=== PATIENT | male | born 1980 | race Two or more races ===

== ENCOUNTER 2017-06-16 09:32 | Emergency (ER) | payer OTHER ==
[~2017-06-16] VITALS: Ht 167.6 cm; Wt 93.4 kg
[2017-06-16] MEDS ORDERED: IV NORMAL SALINE 1000ML BAG 1,000 ML IV SCH (09:51)
[2017-06-16] MEDS ORDERED: ONDANSETRON PF 4 MG/2 ML VIAL. IV ONE (10:00)
[2017-06-16] MEDS ORDERED: fentaNYL PF VIAL 100 MCG/2 ML VIAL IV PRN (10:00)
[2017-06-16] MEDS ORDERED: IOHEXOL 300 MG/ML 75 ML VIAL IV ONE (10:15)
--- NOTE | 2017-06-16 10:32 | ED.ADGEN ---
Past Medical History Past Medical History: No Pertinent History Past Surgical History: No Surgical History Alcohol Use: Occasionally Drug Use: None Adult General Chief Complaint Chief Complaint: TRAUMA ALERT HPI HPI Patient is a 36 year old man, who was working on a roof at work, when he slid, and fell. Patient states that the roof was about 25 feet in the air, he states that he caught under the gutters, believes he fell about 16 feet. Patient states that he fell backwards landing on his right foot and then onto his back. He states he did not strike his head, denies loss of consciousness. C-collar placed upon arrival to the emergency department based on mechanism. Patient has deformity and significant tenderness of the foot and ankle on the right. He is also complaining of pain in the right elbow. He denies any head or neck pain, any abdominal pain or chest pain, any back pain. No previous injuries. Review of Systems Review of Systems Constitutional: Denies fever or chills. [] Eyes: Denies change in visual acuity. [] HENT: Denies nasal congestion or sore throat. [] Respiratory: Denies cough or shortness of breath. [] Cardiovascular: Denies chest pain or edema. [] GI: Denies abdominal pain, nausea, vomiting, bloody stools or diarrhea. [] : Denies dysuria. [] Musculoskeletal: Denies back pain, complaining of pain in the right lower extremity and right upper extremity. Integument: Denies rash. [] Neurologic: Denies headache, focal weakness or sensory changes. [] Endocrine: Denies polyuria or polydipsia. [] Lymphatic: Denies swollen glands. [] Psychiatric: Denies depression or anxiety. [] Current Medications Current Medications Current Medications Medications (Trade) Dose Ordered Sig/Fuad Start Time Stop Time Status Last Admin Dose Admin Diphtheria/ Tetanus/Acell Pertussis (Boostrix) 0.5 ml ONCE ONCE 06/16/17 12:15 06/16/17 12:16 DC 06/16/17 12:31 0.5 ML Fentanyl Citrate (Fentanyl 2ml Vial) 25 mcg PRN Q15MIN PRN 06/16/17 10:00 06/16/17 13:41 DC 06/16/17 11:00 25 MCG Iohexol (Omnipaque 300 Mg/ml) 75 ml 1X ONCE 06/16/17 10:15 06/16/17 10:16 DC 06/16/17 11:12 75 ML Lidocaine/Sodium Bicarbonate (Buffered Lidocaine 1%) 20 ml 1X ONCE 06/16/17 12:15 06/16/17 12:16 DC 06/16/17 12:30 20 ML Ondansetron HCl (Zofran) 4 mg 1X ONCE 06/16/17 10:00 06/16/17 10:07 DC 06/16/17 11:03 4 MG Sodium Chloride 1,000 ml @ 1,000 mls/hr Q1H 06/16/17 09:51 06/16/17 10:50 DC 06/16/17 10:57 1,000 MLS/HR Allergies Allergies Allergies Coded Allergies Type Severity Reaction Last Updated Verified No Known Drug Allergies 06/16/17 No Physical Exam Physical Exam Constitutional: Well developed, well nourished, appears uncomfortable, non- toxic appearance. [] HENT: Normocephalic, atraumatic, bilateral external ears normal, oropharynx moist, no oral exudates, nose normal. [] Eyes: PERRLA, EOMI, conjunctiva normal, no discharge. [] Neck: Normal range of motion, no tenderness, supple, no stridor. [] Cardiovascular:Heart rate regular rhythm, no murmur , S1, S2, no rubs or gallops , chest or crepitus or tenderness.[] Lungs & Thorax: Bilateral breath sounds clear to auscultation , no wheezing, rhonchi, rales.[] Abdomen: Bowel sounds normal, soft, no tenderness, no rebound, rigidity, no guarding, no masses, no pulsatile masses. [] Skin: Warm, dry, no erythema, no rash. [] Back: No tenderness, no CVA tenderness. [] Extremities: Patient with swelling and tenderness to the right foot dorsal aspect, also in the ankle, no bony crepitus identified in the ankle region, patient noted to have a to cinnamon laceration to the inner aspect of the right forearm, no cyanosis, no clubbing, ROM intact, no edema. [] Neurologic: Alert and oriented X 3, normal motor function, normal sensory function, no focal deficits noted. [] Psychologic: Affect normal, judgement normal, mood normal. [] Current Patient Data Vital Signs Vital Signs Date Time Temp Pulse Resp B/P (MAP) Pulse Ox O2 Delivery O2 Flow Rate FiO2 06/16/17 13:06 66 16 124/76 (92) 100 Room Air 06/16/17 09:37 98.0 98.0 Lab Values Laboratory Tests Test 06/16/17 10:38 06/16/17 10:47 06/16/17 13:19 White Blood Count 7.4 x10^3/uL (4.0-11.0) Red Blood Count 5.30 x10^6/uL (4.30-5.70) Hemoglobin 16.1 g/dL (13.0-17.5) Hematocrit 46.7 % (39.0-53.0) Mean Corpuscular Volume 88 fL (79-100) Mean Corpuscular Hemoglobin 30 pg (25-35) Mean Corpuscular Hemoglobin Concent 35 g/dL (31-37) Red Cell Distribution Width 13.0 % (11.5-14.5) Platelet Count 240 x10^3/uL (140-400) Neutrophils (%) (Auto) 63 % (31-73) Lymphocytes (%) (Auto) 29 % (24-48) Monocytes (%) (Auto) 6 % (0-9) Eosinophils (%) (Auto) 2 % (0-3) Basophils (%) (Auto) 0 % (0-3) Neutrophils # (Auto) 4.6 x10^3uL (1.8-7.7) Lymphocytes # (Auto) 2.2 x10^3/uL (1.0-4.8) Monocytes # (Auto) 0.4 x10^3/uL (0.0-1.1) Eosinophils # (Auto) 0.1 x10^3/uL (0.0-0.7) Basophils # (Auto) 0.0 x10^3/uL (0.0-0.2) Prothrombin Time 12.4 SEC (11.7-14.0) Prothrombin Time INR 1.0 (0.8-1.1) PTT 28 SEC (24-38) Sodium Level 139 mmol/L (136-145) Potassium Level 3.8 mmol/L (3.5-5.1) Chloride Level 103 mmol/L (98-107) Carbon Dioxide Level 28 mmol/L (21-32) Anion Gap 8 (6-14) 19 mmol/L (6-14) H Blood Urea Nitrogen 15 mg/dL (8-26) Creatinine 0.9 mg/dL (0.7-1.3) Estimated GFR (Cockcroft-Gault) 96.6 Glucose Level 97 mg/dL (70-99) 95 mg/dL (70-99) Lactic Acid Level 1.1 mmol/L (0.4-2.0) Calcium Level 9.0 mg/dL (8.5-10.1) POC Hemoglobin 16.0 g/dL (14-18) POC Hematocrit 47 % (37-52) POC Sodium 140 mmol/L (135-145) POC Potassium 3.8 mmol/L (3.5-5.0) POC Chloride 102 mmol/L (98-110) POC Total CO2 24 mmol/L (23-32) POC Blood Urea Nitrogen 14 mg/dL (8-26) POC Creatinine 0.8 mg/dL (0.5-1.4) POC Ionized Calcium (Sukumar) 1.17 mmol/L (1.13-1.32) Urine Collection Type Unknown Urine Color Yellow Urine Clarity Clear Urine pH 7.0 Urine Specific Davilla >=1.030 Urine Protein Negative mg/dL (NEG-TRACE) Urine Glucose (UA) Negative mg/dL (NEG) Urine Ketones (Stick) Negative mg/dL (NEG) Urine Blood Negative (NEG) Urine Nitrite Negative (NEG) Urine Bilirubin Negative (NEG) Urine Urobilinogen Dipstick 0.2 mg/dL (0.2 mg/dL) Urine Leukocyte Esterase Negative (NEG) Urine RBC 0 /HPF (0-2) Urine WBC 0 /HPF (0-4) Urine Squamous Epithelial Cells Few /LPF Urine Bacteria 0 /HPF (0-FEW) Urine Opiates Screen Neg (NEG) Urine Methadone Screen Neg (NEG) Urine Barbiturates Neg (NEG) Urine Phencyclidine Screen Neg (NEG) Urine Amphetamine/Methamphetamine Neg (NEG) Urine Benzodiazepines Screen Neg (NEG) Urine Cocaine Screen Neg (NEG) Urine Cannabinoids Screen Neg (NEG) Urine Ethyl Alcohol Neg (NEG) Laboratory Tests 06/16/17 10:38 Laboratory Tests 06/16/17 10:38 06/16/17 10:47 EKG EKG EC: Sinus rhythm, heart rate 59 beats/minute, upright axis, QTC of 414, NC 150, QRS of 102, no ST elevations or depressions, no evidence of acute ST abnormalities. As interpreted by me. Radiology/Procedures Radiology/Procedures [][facility] [address] [place] [address] IMAGING REPORT Signed PATIENT: GILMAR CASTELLON ACCOUNT: [id number] : 1980 LOCATION: ER AGE: 36 SEX: M EXAM STATUS: REG ER ORD. PHYSICIAN: LUIZ LANDERS DO REASON: Fall/ 16 feet PROCEDURE: CT HEAD AND CERVICAL SPINE WO CT scan of the head without contrast 06/16/2017 Clinical history: Fall with head injury. Technique: Unenhanced, contiguous, 5 mm axial sections were obtained through the head. One or more of the following individualized dose reduction techniques were utilized for this study: 1. Automated exposure control. 2. Adjustment of the mA and/or kV according to patient size. 3. Use of iterative reconstruction technique. Findings: The ventricles and sulci are within normal limits in size and configuration. No area of abnormal attenuation is involving the brain parenchyma. No extra-axial fluid collection is seen. No skull fracture is noted. Impression: Negative study. CT scan of the cervical spine without contrast 06/16/2017 Clinical history: Fall with neck injury. Technique: Unenhanced, contiguous, 0.625 mm axial sections were obtained through the cervical spine. 3 mm reconstructed sagittal, axial, and and coronal images were obtained. One or more of the following individualized dose reduction techniques were utilized for this study: 1. Automated exposure control. 2. Adjustment of the mA and/or kV according to patient size. 3. Use of iterative reconstruction technique. Findings: Sagittal and coronal reconstructed images demonstrate slight reversal of the normal cervical lordosis. Mild lateral curvature of the cervical spine is seen convex to the left. Degenerative changes consisting of mild disc space narrowing, vertebral endplate sclerosis and mild anterior vertebral body osteophyte formation seen predominantly at the C4-5 disc space. No fracture or subluxation of the cervical vertebrae is seen. Impression: No fracture or subluxation of the cervical vertebra is seen. DICTATED and SIGNED BY: TRUDI CABALLERO MD DATE: 06/16/17 1159 CC: LUIZ LANDERS DO; NO PCP ~ Impressions: [facility] [address] [place], [place] [id number] IMAGING REPORT Signed PATIENT: GILMAR CASTELLON ACCOUNT: [id number] : 1980 LOCATION: ER AGE: 36 SEX: M EXAM STATUS: REG ER ORD. PHYSICIAN: LUIZ LANDERS DO REASON: Fall/ 16 feet PROCEDURE: CT CHEST ABD PELVIS W/CONTRAST CT scan of the chest, abdomen and pelvis with contrast 06/16/2017 Clinical history: Chest, abdominal and pelvic pain post fall 16 feet. Technique: After the intravenous administration of 75 cc of Omnipaque 300 only, contiguous, 5 mm axial sections were obtained through the chest, abdomen and pelvis. One or more of the following individualized dose reduction techniques were utilized for this study: 1. Automated exposure control. 2. Adjustment of the mA and/or kV according to patient size. 3. Use of iterative reconstruction technique. Findings: No mediastinal hematoma is seen. The heart is normal in size. The thoracic aorta tapers normally. Minimal dependent subsegmental atelectasis is seen involving both lungs. No acute pulmonary infiltrate is seen. No pleural effusion or pneumothorax is noted. The liver parenchyma has a decreased attenuation consistent with mild fatty infiltration. No acute focal abnormality of the liver is seen. The spleen, pancreas, adrenal glands and kidneys are within normal limits. The abdominal aorta tapers normally. The gallbladder is well-distended. No free fluid or free air is seen within the abdomen. There is no evidence of bowel obstruction. Air and stool is seen throughout the colon. The appendix is well visualized and is within normal limits. Images through the pelvis demonstrate the urinary bladder distended with urine. No free fluid is seen. No pelvic hematoma is noted. Mild degenerative changes are seen involving the mid and lower thoracic and mid and lower lumbar spine. Degenerative changes are seen involving both SI joints, left greater than right. The osseous structures are grossly intact. Impression: No acute abnormality is seen. DICTATED and SIGNED BY: TRUDI CABALLERO MD DATE: 06/16/17 1202 CC: LUIZ LANDERS DO; NO PCP ~ [facility] [address] [place] [address] IMAGING REPORT Signed PATIENT: GILMAR CASTELLON ACCOUNT: [id number] : 1980 LOCATION: ER AGE: 36 SEX: M EXAM STATUS: REG ER ORD. PHYSICIAN: LUIZ LANDERS DO REASON: FALL FROM ROOF, PAIN TO RIGHT LOWER LEG AND RIGHT ARM PROCEDURE: ELBOW RIGHT 3V Three-view right elbow radiographs 06/16/2017 Clinical history: Fall from roof with injury to the right elbow. AP, lateral and oblique digital radiographs of the right elbow were obtained. No fracture or dislocation of the right elbow is seen. Moderate enthesophyte formation is seen involving the olecranon. There is no radiographic evidence of a joint effusion. Impression: No fracture or dislocation of the right elbow is seen. DICTATED and SIGNED BY: TRUDI CABALLERO MD DATE: 06/16/17 110 CC: LUIZ LANDERS DO; NO PCP ~ [facility] [id number] [place], [place] [id number] IMAGING REPORT Signed PATIENT: GILMAR CASTELLON ACCOUNT: [id number] : 1980 LOCATION: ER AGE: 36 SEX: M EXAM STATUS: REG ER ORD. PHYSICIAN: LUIZ LANDERS DO REASON: FALL FROM ROOF, PAIN TO RIGHT LOWER LEG AND RIGHT ARM PROCEDURE: FOREARM RIGHT AP and lateral right forearm radiographs 06/16/2017 Clinical history: Fall from roof with pain and laceration to the proximal right forearm. AP and lateral digital radiographs of the right forearm were obtained. No fracture or dislocation right forearm is seen. No radiopaque foreign body is noted. Impression: No fracture or dislocation of the right forearm is seen. DICTATED and SIGNED BY: TRUDI CABALLERO MD DATE: 06/16/17 110 CC: LUIZ LANDERS DO; NO PCP ~ [facility] [address] [place], [place] [id number] IMAGING REPORT Signed PATIENT: GILMAR CASTELLON ACCOUNT: [id number] : 1980 LOCATION: ER AGE: 36 SEX: M EXAM STATUS: REG ER ORD. PHYSICIAN: LUIZ LANDERS DO REASON: FALL FROM ROOF, PAIN TO RIGHT LOWER LEG AND RIGHT ARM PROCEDURE: FOOT RIGHT 3V Three-view right foot radiographs 06/16/2017 Clinical history: Fall from roof with right foot pain. AP, lateral and oblique digital radiographs of the right foot were obtained. No fracture or dislocation of the right foot is seen. Mild hallux valgus deformity is noted. No radiopaque foreign body is seen. Impression: No fracture or dislocation of the right foot is seen. DICTATED and SIGNED BY: TRUDI CABALLERO MD DATE: 06/16/171109 CC: LUIZ LANDERS DO; NO PCP ~ [facility] [address] [facility] [place], [place] [phone] IMAGING REPORT Signed PATIENT: GILMAR CASTELLON ACCOUNT: [id number] : 1980 LOCATION: ER AGE: 36 SEX: M EXAM STATUS: REG ER ORD. PHYSICIAN: LUIZ LANDERS DO REASON: fall/LE pain PROCEDURE: CT LUMBAR SPINE RECONSTRUCTION CT scan of the lumbar spine 06/16/2017 Clinical history: Low back pain post fall 16 feet. Technique: 3 mm reconstructed sagittal, axial and coronal images of the lumbar spine were generated from the dataset obtained during the CT scan of the patient's chest, abdomen and pelvis. One or more of the following individualized dose reduction techniques were utilized for this study: 1. Automated exposure control. 2. Adjustment of the mA and/or kV according to patient size. 3. Use of iterative reconstruction technique. Findings: Sagittal and coronal reconstructed images demonstrate very mild S-shaped curvature of the thoracolumbar spine. No fracture or subluxation of the lumbar vertebrae is seen. The changes of relatively mild degenerative disc disease are seen involving the mid and lower lumbar spine. These consist of minimal to mild generalized disc bulges, degenerative changes involving the facet joints and mild ligamentum flavum hypertrophy. These findings do not result in definite areas of significant central spinal canal or neural foraminal stenosis. Impression: No fracture or subluxation of the lumbar vertebrae is seen. DICTATED and SIGNED BY: TRUDI CABALLERO MD DATE: 06/16/17 1208 CC: LUIZ LANDERS DO; NO PCP ~ [facility] [address] [place], [place] [id number] IMAGING REPORT Signed PATIENT: GILMAR CASTELLON ACCOUNT: [id number] : 1980 LOCATION: ER AGE: 36 SEX: M EXAM STATUS: REG ER ORD. PHYSICIAN: LUIZ LANDERS DO REASON: FALL FROM ROOF, PAIN TO RIGHT LOWER LEG AND RIGHT ARM PROCEDURE: TIBIA FIBULA RIGHT AP and lateral right tibia and fibula radiographs 06/16/2017 Clinical history: Fall from roof with right lower leg pain. AP and lateral digital radiographs of the right tibia and fibula were obtained. No fracture or dislocation is seen. No radiopaque foreign body is noted. Impression: No fracture or dislocation of the right tibia or fibula is seen. DICTATED and SIGNED BY: TRUDI CABALLERO MD DATE: 06/16/17 1105 CC: LUIZ LANDERS DO; NO PCP ~ [facility] [address] [place], [place] [phone] IMAGING REPORT Signed PATIENT: GILMAR CASTELLON ACCOUNT: [id number] : 1980 LOCATION: ER AGE: 36 SEX: M EXAM STATUS: REG ER ORD. PHYSICIAN: LUIZ LANDERS DO REASON: Fall/ 16 feet PROCEDURE: CT CHEST ABD PELVIS W/CONTRAST CT scan of the chest, abdomen and pelvis with contrast 06/16/2017 Clinical history: Chest, abdominal and pelvic pain post fall 16 feet. Technique: After the intravenous administration of 75 cc of Omnipaque 300 only, contiguous, 5 mm axial sections were obtained through the chest, abdomen and pelvis. One or more of the following individualized dose reduction techniques were utilized for this study: 1. Automated exposure control. 2. Adjustment of the mA and/or kV according to patient size. 3. Use of iterative reconstruction technique. Findings: No mediastinal hematoma is seen. The heart is normal in size. The thoracic aorta tapers normally. Minimal dependent subsegmental atelectasis is seen involving both lungs. No acute pulmonary infiltrate is seen. No pleural effusion or pneumothorax is noted. The liver parenchyma has a decreased attenuation consistent with mild fatty infiltration. No acute focal abnormality of the liver is seen. The spleen, pancreas, adrenal glands and kidneys are within normal limits. The abdominal aorta tapers normally. The gallbladder is well-distended. No free fluid or free air is seen within the abdomen. There is no evidence of bowel obstruction. Air and stool is seen throughout the colon. The appendix is well visualized and is within normal limits. Images through the pelvis demonstrate the urinary bladder distended with urine. No free fluid is seen. No pelvic hematoma is noted. Mild degenerative changes are seen involving the mid and lower thoracic and mid and lower lumbar spine. Degenerative changes are seen involving both SI joints, left greater than right. The osseous structures are grossly intact. Impression: No acute abnormality is seen. DICTATED and SIGNED BY: TRUDI CABALLERO MD DATE: 06/16/17 1202 CC: LUIZ LANDERS DO; NO PCP ~ Course & Med Decision Making Course & Med Decision Making Pertinent Labs and Imaging studies reviewed. (See chart for details) Patient patient's mechanism action, c-collar was placed, and trauma alert was called. Patient is complaining of pain in the right ankle, states he is a previous injury to the area, but is diffusely tender in the medial and lateral nail noted to have some deformity, although there is no crepitus or evidence of external injury. Discussed with patient that based on the height of his fall, which was at least 16 feet, when he landed on his right side, he is agreeable for imaging of the head, neck, chest abdomen and pelvis to rule out occult injury. X-rays of the right upper and lower extremity obtained also. No acute fractures or other abnormalities identified. Patient noted to have an old fracture in the right lower extremity. However, although there is no acute injury identified on plain film, patient is having difficulty weightbearing, and is limping, therefore after c-collar was cleared, and patient had suture repair of the laceration of the right upper extremity, patient had Garth wrap applied was placed on crutches, given contact information for orthopedics with Dr. Akbar. Patient's tetanus was updated. Patient's employer was informed of incident, and patient will follow-up per instructions from his employer. Patient discharged home in stable condition with instructions to return in 7 days for suture removal, to return any time for new or concerning symptoms as discussed. Prescriptions for Flexeril and naproxen distributed with discharge, patient exited the emergency department crutch walking without issue with significant other. Dragon Disclaimer Dragon Disclaimer This electronic medical record was generated, in whole or in part, using a voice recognition dictation system. Departure Impression: Primary Impression: Fall Additional Impression: Right ankle pain Disposition: HOME, SELF-CARE Condition: IMPROVED Scripts Cyclobenzaprine Hcl (CYCLOBENZAPRINE HCL) 10 Mg Tablet 10 MG PO PRN TID Y for MUSCLE PAIN, #12 TAB Prov: LUIZ LANDERS DO 06/16/17 Naproxen (NAPROXEN) 250 Mg Tablet 250 MG PO PRN BID Y for PAIN, #10 Prov: LUIZ LANDERS DO 06/16/17 Problem Qualifiers LUIZ LANDERS DO Jun 16, 2017 10:32
[2017-06-16 10:53] LABS: POTASSIUM ISTAT 3.8 mmol/L (3.5-5.0)
[2017-06-16 10:55] LABS: BASO % 0 % (0-3); EOS % 2 % (0-3); HEMATOCRIT 46.7 % (39.0-53.0); HEMOGLOBIN 16.1 g/dL (13.0-17.5); LYMPH # 2.2 x10^3/uL (1.0-4.8); LYMPH % 29 % (24-48); MEAN CORPUSCULAR HEMOGLOBIN 30 pg (25-35); MEAN CORPUSCULAR HGB CONC 35 g/dL (31-37); MEAN CORPUSCULAR VOLUME 88 fL (79-100); MONO % 6 % (0-9); NEUT % 63 % (31-73); PLATELET COUNT 240 x10^3/uL (140-400); WHITE BLOOD COUNT 7.4 x10^3/uL (4.0-11.0)
[2017-06-16 11:06] LABS: CREATININE 0.9 mg/dL (0.7-1.3); GFR 96.6; POTASSIUM 3.8 mmol/L (3.5-5.1)
--- NOTE | 2017-06-16 11:06 | RAD ---
AP and lateral right forearm radiographs 06/16/2017 Clinical history: Fall from roof with pain and laceration to the proximal right forearm. AP and lateral digital radiographs of the right forearm were obtained. No fracture or dislocation right forearm is seen. No radiopaque foreign body is noted. Impression: No fracture or dislocation of the right forearm is seen.
--- NOTE | 2017-06-16 11:08 | RAD ---
Three-view right elbow radiographs 06/16/2017 Clinical history: Fall from roof with injury to the right elbow. AP, lateral and oblique digital radiographs of the right elbow were obtained. No fracture or dislocation of the right elbow is seen. Moderate enthesophyte formation is seen involving the olecranon. There is no radiographic evidence of a joint effusion. Impression: No fracture or dislocation of the right elbow is seen.
--- NOTE | 2017-06-16 11:10 | RAD ---
AP and lateral right tibia and fibula radiographs 06/16/2017 Clinical history: Fall from roof with right lower leg pain. AP and lateral digital radiographs of the right tibia and fibula were obtained. No fracture or dislocation is seen. No radiopaque foreign body is noted. Impression: No fracture or dislocation of the right tibia or fibula is seen.
--- NOTE | 2017-06-16 11:13 | RAD ---
Three-view right ankle radiographs 06/16/2017 Clinical history: Fall from roof with right ankle pain. AP, lateral and oblique digital radiographs of the right ankle were obtained. An old appearing healed fracture of the superior aspect of the medial malleolus of the right ankle is noted. No acute fracture or dislocation of the right ankle is seen. Mild to moderate degenerative changes are seen involving the right ankle joint. Impression: No acute fracture or dislocation of the right ankle is seen.
--- NOTE | 2017-06-16 11:14 | RAD ---
2 view right calcaneus radiographs 06/16/2017 Clinical history: Fall with injury to the right calcaneus. Lateral and axial digital radiographs of the right calcaneus were obtained. No fracture or dislocation right calcaneus is seen. Impression: No fracture or dislocation of the right calcaneus is seen.
[2017-06-16 11:16] LABS: PROTHROMBIN TIME PATIENT 12.4 SEC (11.7-14.0)
--- NOTE | 2017-06-16 11:16 | RAD ---
Three-view right foot radiographs 06/16/2017 Clinical history: Fall from roof with right foot pain. AP, lateral and oblique digital radiographs of the right foot were obtained. No fracture or dislocation of the right foot is seen. Mild hallux valgus deformity is noted. No radiopaque foreign body is seen. Impression: No fracture or dislocation of the right foot is seen.
--- NOTE | 2017-06-16 11:55 | EKG ---
[facility] [address] [place] [id number] Test Date: 2017-06-16 Test Time: 10:14:10 Pat Name: GILMAR CASTELLON Department: Room: Gender: Grinder Hand: JACKSON : 1980 Requested By: LUIZ LANDERS Order Number: [id number] Reading MD: Osmany Bower Measurements Intervals [place] Rate: 59 P: 37 AK: 150 QRS: 2 QRSD: 102 T: -1 QT: 414 QTc: 414 Interpretive Statements SINUS RHYTHM Electronically Signed On 06-26-2017 10:20:06 CDT by Osmany Bower
--- NOTE | 2017-06-16 12:06 | RAD ---
CT scan of the head without contrast 06/16/2017 Clinical history: Fall with head injury. Technique: Unenhanced, contiguous, 5 mm axial sections were obtained through the head. One or more of the following individualized dose reduction techniques were utilized for this study: 1. Automated exposure control. 2. Adjustment of the mA and/or kV according to patient size. 3. Use of iterative reconstruction technique. Findings: The ventricles and sulci are within normal limits in size and configuration. No area of abnormal attenuation is involving the brain parenchyma. No extra-axial fluid collection is seen. No skull fracture is noted. Impression: Negative study. CT scan of the cervical spine without contrast 06/16/2017 Clinical history: Fall with neck injury. Technique: Unenhanced, contiguous, 0.625 mm axial sections were obtained through the cervical spine. 3 mm reconstructed sagittal, axial, and and coronal images were obtained. One or more of the following individualized dose reduction techniques were utilized for this study: 1. Automated exposure control. 2. Adjustment of the mA and/or kV according to patient size. 3. Use of iterative reconstruction technique. Findings: Sagittal and coronal reconstructed images demonstrate slight reversal of the normal cervical lordosis. Mild lateral curvature of the cervical spine is seen convex to the left. Degenerative changes consisting of mild disc space narrowing, vertebral endplate sclerosis and mild anterior vertebral body osteophyte formation seen predominantly at the C4-5 disc space. No fracture or subluxation of the cervical vertebrae is seen. Impression: No fracture or subluxation of the cervical vertebra is seen.
--- NOTE | 2017-06-16 12:12 | RAD ---
CT scan of the chest, abdomen and pelvis with contrast 06/16/2017 Clinical history: Chest, abdominal and pelvic pain post fall 16 feet. Technique: After the intravenous administration of 75 cc of Omnipaque 300 only, contiguous, 5 mm axial sections were obtained through the chest, abdomen and pelvis. One or more of the following individualized dose reduction techniques were utilized for this study: 1. Automated exposure control. 2. Adjustment of the mA and/or kV according to patient size. 3. Use of iterative reconstruction technique. Findings: No mediastinal hematoma is seen. The heart is normal in size. The thoracic aorta tapers normally. Minimal dependent subsegmental atelectasis is seen involving both lungs. No acute pulmonary infiltrate is seen. No pleural effusion or pneumothorax is noted. The liver parenchyma has a decreased attenuation consistent with mild fatty infiltration. No acute focal abnormality of the liver is seen. The spleen, pancreas, adrenal glands and kidneys are within normal limits. The abdominal aorta tapers normally. The gallbladder is well-distended. No free fluid or free air is seen within the abdomen. There is no evidence of bowel obstruction. Air and stool is seen throughout the colon. The appendix is well visualized and is within normal limits. Images through the pelvis demonstrate the urinary bladder distended with urine. No free fluid is seen. No pelvic hematoma is noted. Mild degenerative changes are seen involving the mid and lower thoracic and mid and lower lumbar spine. Degenerative changes are seen involving both SI joints, left greater than right. The osseous structures are grossly intact. Impression: No acute abnormality is seen.
[2017-06-16] MEDS ORDERED: DIPHTH,PERTUSS(ACELL),TET TOX 0.5 ML DISP.SYRIN. VAX IM ONE (12:15)
[2017-06-16] MEDS ORDERED: LIDOCAINE 1% / SOD BICARB 8.4% 20 ML VIAL. IJ ONE (12:15)
--- NOTE | 2017-06-16 12:16 | RAD ---
CT scan of the lumbar spine 06/16/2017 Clinical history: Low back pain post fall 16 feet. Technique: 3 mm reconstructed sagittal, axial and coronal images of the lumbar spine were generated from the dataset obtained during the CT scan of the patient's chest, abdomen and pelvis. One or more of the following individualized dose reduction techniques were utilized for this study: 1. Automated exposure control. 2. Adjustment of the mA and/or kV according to patient size. 3. Use of iterative reconstruction technique. Findings: Sagittal and coronal reconstructed images demonstrate very mild S-shaped curvature of the thoracolumbar spine. No fracture or subluxation of the lumbar vertebrae is seen. The changes of relatively mild degenerative disc disease are seen involving the mid and lower lumbar spine. These consist of minimal to mild generalized disc bulges, degenerative changes involving the facet joints and mild ligamentum flavum hypertrophy. These findings do not result in definite areas of significant central spinal canal or neural foraminal stenosis. Impression: No fracture or subluxation of the lumbar vertebrae is seen.
[2017-06-16 13:06] VITALS: BP 124/76
[2017-06-16] MEDS ORDERED: NAPR250T6 PO (13:25)
[2017-06-16] MEDS ORDERED: CYCL10TA2 PO (13:25)
[2017-06-16 13:28] LABS: BILIRUBIN,URINE NEGATIVE (NEG); GLUCOSE,URINE NEGATIVE (NEG); NITRITE,URINE NEGATIVE (NEG); PROTEIN,URINE NEGATIVE (NEG-TRACE); UROBILINOGEN,URINE 0.2 mg/dL (0.2 mg/dL)
[2017-06-16 13:40] LABS: BARBITURATES NEG (NEG); BENZODIAZEPINES NEG (NEG); CANNABINOIDS NEG (NEG); COCAINE NEG (NEG); METHADONE NEG (NEG); OPIATES NEG (NEG); PHENCYCLIDINE NEG (NEG)
[2017-06-16 13:42] LABS: BACTERIA,URINE 0 /HPF (0-FEW); RBC,URINE 0 /HPF (0-2); SQUAMOUS EPITHELIAL CELL,UR FEW /LPF; WBC,URINE 0 /HPF (0-4)
== END 2017-06-16 13:41 | disposition home or self-care (01) ==
LOC: ER 09:32
DX: S61.411A Laceration without foreign body of right hand, initial encounter (principal); Y99.8 Other external cause status; Y92.89 Other specified places as the place of occurrence of the external cause; Y93.89 Activity, other specified; W13.2XXA Fall from, out of or through roof, initial encounter; M25.571 Pain in right ankle and joints of right foot; M25.521 Pain in right elbow
CPT/HCPCS: 12001; 36415; 70450; 71260; 72125; 73080; 73090; 73590; 73610; 73630; 73650; 74177; 80047; 80048; 80307; 81001; 83605; 85025; 85610; 85730; 90471; 90715; 93005; 96361; 96374; 96375; 99285; J2405; J3010; J7030; Q9967; G0479